=== PATIENT | female | born 1945 | race Caucasian/White ===

== ENCOUNTER → 2019-03-15 | Outpatient (CLI) | payer MEDICARE, OTHER | LOC: DL.CLIN 09:00 | CPT/HCPCS: 99212 ==

== ENCOUNTER → 2019-04-02 | Outpatient (CLI) | payer MEDICARE, OTHER | LOC: DL.CLIN 08:00 | CPT/HCPCS: 99212 ==

== ENCOUNTER 2024-02-08 21:21 | Emergency (ER) | payer MEDICARE, OTHER ==
[2024-02-08] MEDS: Oxymetazoline 0.05% Nasal Spray 30 ML Bottle NAS ONE (21:31)
[2024-02-08] MEDS: Tranexamic Acid 1,000 MG/10 ML Vial TOP ONE (21:54)
[2024-02-08 22:11] LABS: BASOPHILS PERCENT AUTO 0.8 % (0.0-1.0); EOSINOPHILS PERCENT AUTO 10.4 % (1.0-3.0); HEMOGLOBIN 11.2 g/dL (12.0-16.0); LYMPHOCYTES PERCENT AUTO 17.2 % (20.5-50.1); MEAN CORPUSCULAR HEMOGLOBIN 30.5 pg (27.0-34.0); MEAN CORPUSCULAR HGB CONC 32.9 g/dL (33.0-35.0); MEAN CORPUSCULAR VOLUME 92.6 fL (80-100); MONOCYTES PERCENT AUTO 11.7 % (2-8); NEUTROPHILS PERCENT AUTO 59.9 % (42.2-75.2); PLATELET COUNT,PLT 115 10^3/uL (150-450); RED BLOOD CELL COUNT 3.67 10^6/uL (4.2-5.4); WHITE BLOOD CELL COUNT,WBC 6.1 10^3/uL (5.0-10.0)
[2024-02-08 23:01] LABS: INR 1.2 (0.9-1.2)
[2024-02-08] MEDS: EPINEPHrine Nasal Soln 30 MG/30 ML Bottle NAS ONE (23:44)
[2024-02-08] MEDS: Silver Nitrate Applicator Each TOP ONE (23:44)
== END 2024-02-08 23:40 | disposition home or self-care (01) ==
LOC: DL.ED 21:21
DX: R04.0 Epistaxis (principal); Z88.8 Allergy status to other drugs, medicaments and biological substances; Z91.041 Radiographic dye allergy status
CPT/HCPCS: 30901; 30905; 36415; 85025; 85610; 85730; 99282; 99283-25; A9270-GY; J3490